=== PATIENT | female | born 1950 | race Hispanic/Latino ===

== ENCOUNTER 2022-03-03 06:43 | Observation (INO) | payer OTHER, MEDICARE ==
[~2022-03-03] VITALS: Ht 149.9 cm; Wt 57.2 kg
[~2022-03-03 06:43] MED LIST: NAPR220C15 PO; PSYL369P PO
[2022-03-03 07:57] LABS: BASOPHILS % (AUTO) 0.6 % (0.0-5.0); EOSINOPHILS % (AUTO) 0.3 % (0.0-8.0); HEMATOCRIT 37.3 % (36-48); LYMPHOCYTES % (AUTO) 15.6 % (21.0-51.0); MEAN CORPUSCULAR HEMOGLOBIN 29.7 pg (27.0-33.0); MEAN CORPUSCULAR VOLUME 87.4 fL (79-99); MONOCYTES % (AUTO) 9.9 % (3.0-13.0); NEUTROPHILS % (AUTO) 73.1 % (40.0-77.0); PLATELET COUNT (AUTO) 440 K/uL (130-400); RED BLOOD CELL COUNT(AUTO) 4.27 MIL/uL (4.00-5.50); RED CELL DISTRIBUTION WIDTH 12.8 % (11.0-15.5); WHITE BLOOD COUNT (AUTO) 9.6 K/uL (4.8-10.8)
[2022-03-03 08:10] LABS: APPEARANCE,URINE CLEAR (CLEAR); BILIRUBIN,URINE NEGATIVE (NEGATIVE); COLOR,URINE LIGHT-YELLOW (YELLOW); GLUCOSE, URINE (UA) NEGATIVE (NEGATIVE); KETONES,URINE NEGATIVE (NEGATIVE); LEUKOCYTE ESTERASE ,URINE NEGATIVE Leu/uL (NEGATIVE); NITRATE,URINE NEGATIVE (NEGATIVE); OCCULT BLOOD,URINE NEGATIVE (NEGATIVE); PROTEIN,URINE NEGATIVE (NEGATIVE); UROBILINOGEN,URINE 0.2 mg/dL (0.2-1.0)
[2022-03-03 08:21] LABS: B-TYPE NATRIURETIC PEPTIDE 20 pg/mL (0-100)
[2022-03-03 08:42] LABS: ABG BASE EXCESS 0.2 mmol/L (-2.0-3.0); ABG HCO3 23.9 mmol/L (21.0-28.0); ABG OXYGEN SATURATION 94.2 % (95.0-99.0); ABG PCO2 36 mmHg (32-45)
[2022-03-03 08:54] LABS: CREATININE 0.8 mg/dL (0.5-1.5); POTASSIUM 4.8 mmol/L (3.5-5.1)
[2022-03-03 08:58] LABS: ALBUMIN 3.3 g/dL (3.5-5.0); MAGNESIUM 1.8 mg/dL (1.80-2.40); TOTAL PROTEIN, SERUM 7.3 g/dL (6.0-8.3)
[2022-03-03] MEDS ORDERED: ALBU0.63 IH (11:25)
[2022-03-03] MEDS ORDERED: METF-910 PO (11:25)
[2022-03-03] MEDS ORDERED: DOXY100T2 PO (11:25)
[2022-03-03] MEDS ORDERED: [UNRECOGNIZED DRUG - CODE] PO (11:25)
[2022-03-03] MEDS ORDERED: ROSU5TAB12 PO (11:25)
[2022-03-03] MEDS ORDERED: METH4TAB15 PO (11:29)
[2022-03-03] MEDS ORDERED: ACETAMINOPHEN 325 MG TAB PO PRN (13:00)
[2022-03-03] MEDS ORDERED: CLONIDINE HCL 0.1 MG TABLET PO PRN ×2 (13:00)
[2022-03-03] MEDS ORDERED: MORPHINE 2 MG SYG IVP PRN (13:00)
[2022-03-03] MEDS ORDERED: IOHEXOL 350 MG/ML 100ML INFUS..BTL IV ONE (13:00)
[2022-03-03] MEDS ORDERED: ACETAMINOPHEN 650 MG SUPPOSITORY RC PRN (13:00)
[2022-03-03] MEDS ORDERED: SOLU-MEDROL 125MG VIAL IVP ONE (13:30)
[2022-03-03] MEDS: LEVOFLOXACIN 500 MG/D5W 100 ML IV SCH (14:21)
[2022-03-03] MEDS: 0.9%NACL 1000ML 1,000 ML IV SCH (14:21)
[2022-03-03 15:25] VITALS: BP 145/77
[2022-03-03] MEDS: INSULIN HUMULIN R 100 UNIT/ML 3ML SQ SCH ×2 (16:30→20:25)
[2022-03-03] MEDS: IPRATROPIUM 0.5 MG/2.5 ML INH IH SCH ×2 (18:42→23:38)
[2022-03-03] MEDS: ALBUTEROL 0.083% 2.5 MG/3 ML INH IH SCH ×2 (18:42→23:38)
[2022-03-03 20:00] VITALS: BP 143/91
[2022-03-03] MEDS: SOLU-MEDROL 40MG VIAL IVP SCH (20:21)
[2022-03-03] MEDS ORDERED: METOPROLOL TARTRATE 25 MG TAB PO ONE (23:00)
[2022-03-04] VITALS (7 sets, daily range): BP systolic 115–138; BP diastolic 57–85
[2022-03-04] MEDS: INSULIN HUMULIN R 100 UNIT/ML 3ML SQ SCH ×4 (04:53→19:53)
[2022-03-04 05:34] LABS: BASOPHILS % (AUTO) 0.1 % (0.0-5.0); HEMATOCRIT 37.3 % (36-48); LYMPHOCYTES % (AUTO) 11.4 % (21.0-51.0); MEAN CORPUSCULAR HEMOGLOBIN 29.4 pg (27.0-33.0); MEAN CORPUSCULAR HGB CONC 33.2 g/dL (32.0-36.0); MEAN CORPUSCULAR VOLUME 88.4 fL (79-99); MONOCYTES % (AUTO) 6.5 % (3.0-13.0); NEUTROPHILS % (AUTO) 80.7 % (40.0-77.0); PLATELET COUNT (AUTO) 462 K/uL (130-400); RED BLOOD CELL COUNT(AUTO) 4.22 MIL/uL (4.00-5.50); RED CELL DISTRIBUTION WIDTH 12.8 % (11.0-15.5); WHITE BLOOD COUNT (AUTO) 7.8 K/uL (4.8-10.8)
[2022-03-04 05:59] LABS: B-TYPE NATRIURETIC PEPTIDE 19 pg/mL (0-100)
[2022-03-04 06:05] LABS: CREATININE 0.8 mg/dL (0.5-1.5); PHOSPHORUS 3.7 mg/dL (2.5-4.9); POTASSIUM 4.6 mmol/L (3.5-5.1)
[2022-03-04] MEDS: ALBUTEROL 0.083% 2.5 MG/3 ML INH IH SCH ×3 (06:37→18:27)
[2022-03-04] MEDS: IPRATROPIUM 0.5 MG/2.5 ML INH IH SCH ×3 (06:37→18:27)
[2022-03-04] MEDS: Rosuvastatin Calcium 5 MG PO SCH (08:18)
[2022-03-04] MEDS: [UNRECOGNIZED DRUG - OTHER] PO SCH (08:18)
[2022-03-04] MEDS: PIRFENIDONE 267 MG PO SCH ×3 (08:18→20:36)
[2022-03-04] MEDS: 0.9%NACL 1000ML 1,000 ML IV SCH (08:18)
[2022-03-04] MEDS: PSYLLIUM SEED PO SCH (08:18)
[2022-03-04] MEDS: ENOXAPARIN SODIUM 40 MG/0.4 ML SYRINGE SQ SCH (08:21)
[2022-03-04] MEDS: METOPROLOL TARTRATE 25 MG TAB PO SCH ×2 (08:21→20:33)
[2022-03-04] MEDS: POLYETHYLENE GLYCOL 3350 17 GM POWD.PACK PO SCH (08:21)
[2022-03-04] MEDS: SOLU-MEDROL 40MG VIAL IVP SCH ×2 (08:21→20:34)
[2022-03-04] MEDS: PANTOPRAZOLE 40 MG TAB DR PO SCH (08:21)
[2022-03-04] MEDS: LEVOFLOXACIN 500 MG/D5W 100 ML IV SCH (13:05)
[2022-03-04] MEDS ORDERED: GUAIFENESIN-CODEINE 5 ML SYRUP PO PRN (16:00)
[2022-03-04] MEDS ORDERED: PRED20TA3 PO (19:13)
[2022-03-04] MEDS ORDERED: PRED5TAB PO (19:13)
[2022-03-04] MEDS ORDERED: LEVO-70 PO (19:13)
[2022-03-04] MEDS ORDERED: PRED10TA3 PO (19:13)
[2022-03-05] MEDS: IPRATROPIUM 0.5 MG/2.5 ML INH IH SCH ×3 (00:05→11:38)
[2022-03-05] MEDS: ALBUTEROL 0.083% 2.5 MG/3 ML INH IH SCH ×3 (00:06→11:38)
[2022-03-05 04:45] VITALS: BP 113/73
[2022-03-05 04:52] LABS: MEAN CORPUSCULAR HEMOGLOBIN 30.1 pg (27.0-33.0); MEAN CORPUSCULAR HGB CONC 32.9 g/dL (32.0-36.0); MEAN CORPUSCULAR VOLUME 91.4 fL (79-99); RED BLOOD CELL COUNT(AUTO) 3.72 MIL/uL (4.00-5.50); RED CELL DISTRIBUTION WIDTH 13.2 % (11.0-15.5); WHITE BLOOD COUNT (AUTO) 10.6 K/uL (4.8-10.8)
[2022-03-05] MEDS: 0.9%NACL 1000ML 1,000 ML IV SCH (05:00)
[2022-03-05 05:04] LABS: CREATININE 0.8 mg/dL (0.5-1.5)
[2022-03-05] MEDS: INSULIN HUMULIN R 100 UNIT/ML 3ML SQ SCH ×2 (06:13→11:30)
[2022-03-05 08:00] VITALS: BP 113/62
[2022-03-05] MEDS: [UNRECOGNIZED DRUG - OTHER] PO SCH (09:00)
[2022-03-05] MEDS: Rosuvastatin Calcium 5 MG PO SCH (09:00)
[2022-03-05] MEDS: PSYLLIUM SEED PO SCH (09:00)
[2022-03-05] MEDS: PIRFENIDONE 267 MG PO SCH ×2 (09:00→12:32)
[2022-03-05] MEDS: METOPROLOL TARTRATE 25 MG TAB PO SCH (09:06)
[2022-03-05] MEDS: SOLU-MEDROL 40MG VIAL IVP SCH (09:06)
[2022-03-05] MEDS: ENOXAPARIN SODIUM 40 MG/0.4 ML SYRINGE SQ SCH (09:06)
[2022-03-05] MEDS: PANTOPRAZOLE 40 MG TAB DR PO SCH (09:06)
[2022-03-05] MEDS: POLYETHYLENE GLYCOL 3350 17 GM POWD.PACK PO SCH (09:06)
[2022-03-05 12:00] VITALS: BP 137/71
== END 2022-03-05 13:40 | disposition home or self-care (01) ==
LOC: EDH 06:43 → EDHIP 12:36 → 3AH 15:31
PROVIDERS: ADMIT Internal Medicine Critical Care Medicine; ATTEND Internal Medicine Critical Care Medicine
DX: J96.01 Acute respiratory failure with hypoxia (principal); Z20.822 Contact with and (suspected) exposure to COVID-19; J84.10 Pulmonary fibrosis, unspecified; J18.9 Pneumonia, unspecified organism; E11.9 Type 2 diabetes mellitus without complications; E78.00 Pure hypercholesterolemia, unspecified; R79.89 Other specified abnormal findings of blood chemistry; Z79.899 Other long term (current) drug therapy
CPT/HCPCS: 94640 ×8; 96376 ×3; 96361; 96375; 99285; 82550 ×4; 83735; 83874 ×3; 84484 ×4; 80053; 82803; 83880 ×2; 85025 ×2; 85378; 87040 ×2; 87807; 87804 ×2; 82948 ×8; 81003; 36415 ×3; 87635; 71045 ×2; 71270; 93005; 36600; 94664; 84145; 96372 ×2; 96365; 96366; 84100; 80048 ×2; 83605; 93306; 93356; 94760 ×2; 85027; J1815; G0378 ×46; C9803; J1956 ×2; J7030; J2930; J2920 ×4; Q9967; J1650 ×2

== ENCOUNTER → 2023-07-23 | Outpatient (CLI) | payer OTHER, MEDICARE ==
[~2023-07-23] MED LIST changes: +ALBU0.63 IH; +DOXY100T2 PO; +LEVO-70 PO; +METF-910 PO; +PRED10TA3 PO; +PRED20TA3 PO; +PRED5TAB PO; +ROSU5TAB43 PO; +[UNRECOGNIZED DRUG - CODE] PO
== END | disposition home or self-care (01) ==
LOC: RAH 12:28
PROVIDERS: ATTEND Internal Medicine
DX: Z13.820 Encounter for screening for osteoporosis (principal); M85.89 Other specified disorders of bone density and structure, multiple sites; Z78.0 Asymptomatic menopausal state
CPT/HCPCS: 77080